=== PATIENT | female | born 1980 | race Caucasian/White ===

== ENCOUNTER 2016-11-20 13:40 | Emergency (ER) | payer OTHER ==
[2016-11-20 13:48] VITALS: BP 145/73; PULSE 70; RESP 30; O2SAT 99
--- NOTE | 2016-11-20 14:05 | ED.REPORT ---
HPI-Chest Pain Under 40 Date of Service Nov 20, 2016 ED Provider: The patient is a 36 year old otherwise female who presents to the emergency department complaining of chest pain that began suddenly after she bent over to grab her cat earlier today around 1130. The pain lasted for about 45 minutes. She states it felt like something was sitting on her chest. She also describes the pain as "sharp." Her pain was exacerbated with deep breaths. She has had similar symptoms in the past but her pain today is more severe. She is on control pills. She recently quit smoking tobacco. She denies fever, chills, shortness of breath, cough, vomiting, diarrhea, abdominal pain or lower extremity swelling. Nursing Notes Stated Complaint: CHEST PAIN/BREATHING PAINFUL Chief Complaint: Chest Pain-Non Cardiac Nature Nursing Notes Reviewed: Yes Allergies: Coded Allergies: No Known Allergies (Unverified , 11/20/16) Scheduled PRN Hydrocodone-Acetaminophen 5-325 mg (Hydrocodone-Acetaminophen 5-325 mg) 1 Each Tablet 1 TABLET PO Q6H PRN PRN For Pain General Time Seen by MD: 14:04 Chief Complaint Chest pain Hx Obtained From: Patient, Spouse Arrived By: Wheelchair Sudden in Onset?: Yes Symptom Duration: Since onset Location: : Substernal Quality: Painful, Pleuritic, Pressure, Sharp Radiation: : Does not radiate Migration/Movement: Reports: None Severity: Current: Moderate Severity: Maximum: Severe Recent Healthcare: No recent doctor visit, No recent hospitalization Similar Sx Previous: Yes Past Medical History Past Medical History Denies Family History Noncontributory Smoking History Former Smoker (recently quit) Social History Other Social History: Good social support, , Local resident Ambulatory Status Independent Review of Systems Constitutional: Denies: Chills, Fever Respiratory: Reports: Pleuritic pain, Denies: Non-productive cough, Shortness of breath Cardiovascular: Reports: Chest pain GI: Denies: Abdominal pain, Diarrhea, Vomiting Musculoskeletal: Denies: Extremity swelling Complete sys rev & neg: except as marked. Physical Exam Initial Vital Signs Vital Signs (First) Date Time Temp Pulse Resp B/P Pulse Ox O2 Delivery O2 Flow Rate FiO2 11/20/16 13:48 36.6 70 30 145/73 99 Room Air Initial VS: Reviewed, Vital signs normal Head / Eyes: Atraumatic, Normocephalic, PERRL ENT: Mucous membranes moist, Conjunctiva normal, No scleral icterus Neck: Supple, Non-tender, Full range of motion Abdomen / GI: Soft, Non-tender, No guarding, No rebound, No distention Lymphatic: No lymphadenopathy Extremities: Vascular intact, Neuro intact, No swelling, No tenderness Skin: Warm, Dry, No cyanosis Neurologic: Alert, Oriented, Nonfocal Psychiatric: Mood/affect normal, Behavior normal, Normal thought content General/Constitutional: Awake, Alert, Cooperative Respiratory / Chest: Breath sounds NL, Breath sounds = bilat, No respiratory distress, No rales, No rhonchi, No wheezing mid chest tenderness with palpation Cardiovascular: Heart rate NL, Regular rhythm, Heart sounds NL, No gallop, No murmurs, No rubs, Peripheral circulation NL, Pulses = bilaterally, No gross BP differential Lower Extremity / Pelvis / MS: No swelling, Neurologic intact, Vascular intact , No edema Calves are soft and nontender Interpretation & Diagnostics Lab Results Interpretation Result Diagram: 11/20/16 1350 11/20/16 1350 Test 11/20/16 13:50 White Blood Count 12.7th/mm3 (3.8-10.1) Red Blood Count 4.96mil/mm3 (3.90-5.20) Hemoglobin 15.4g/dL (12.0-15.6) Hematocrit 45.3% (35.0-46.0) Mean Corpuscular Volume 91fL (81-100) Mean Corpuscular Hemoglobin 31.0pg (27.0-35.0) Mean Corpuscular Hemoglobin Concent 34.0% (32.0-37.0) Red Cell Distribution Width 12.1% (12.3-15.4) Platelet Count 309bil/L (150-400) Neutrophils (%) (Auto) 57% (40-74) Lymphocytes (%) (Auto) 31% (14-46) Monocytes (%) (Auto) 9% (4-12) Eosinophils (%) (Auto) 2% (0-5) Basophils (%) (Auto) 1% (0-3) D-Dimer 0.8mg/L (<0.50) Sodium Level 137mEq/L (134-144) Potassium Level 4.3mEq/L (3.5-5.2) Chloride Level 102mEq/L (97-108) Carbon Dioxide Level 20mmol/L (18-29) Blood Urea Nitrogen 18mg/dL (6-20) Creatinine 0.70mg/dL (0.57-1.00) Estimat Glomerular Filtration Rate 137mL/min (>59) Glucose Level 95mg/dL (60-99) Calcium Level 9.2mg/dL (8.5-10.1) Total Bilirubin 0.3mg/dL (0.0-1.2) Aspartate Amino Transf (AST/SGOT) 24U/L (0-50) Alanine Aminotransferase (ALT/SGPT) 46U/L (0-32) Alkaline Phosphatase 89U/L (25-150) Troponin T < 0.010ug/L (0.0-0.011) Pro-B-Type Natriuretic Peptide 32.33pg/mL (0-130) Total Protein 7.3g/dL (6.4-8.4) Albumin 4.1g/dL (3.4-5.0) ECG Interpretation ECG Interpretation: Normal sinus rhythm Normal intervals Normal axis No ST or T wave changes Time: 14:00 Interpreted by: ED physician X-Ray Chest Interpretation Chest Xray Interpretation: IMPRESSION: Retrocardiac opacity is noted suspected to be related to overlapping vascular shadows. CT may be obtained as clinically indicated for additional evaluation. Dictated by: Yolanda Chong M.D. on 11/20/2016 at 16:11 Interpretation / Wet Read by: Interpret - Radiologist CT Chest Interpretation IMPRESSION: 1. Exam is negative for pulmonary embolic disease. 2. Mass lesion in the left lower lobe is slightly larger and more rounded in configuration compared to previous study. Internal attenuation suggests a solid lesion. The finding may represent a slow growing, well-differentiated carcinoma, but relative stability over time is more compatible with a benign process such as hamartoma. A PET/CT exam is suggested for better determination of malignant versus benign etiology. Dictated by: Andrew Yee M.D. on 11/20/2016 at 16:25 Study type: CT pulm angiogram Interpretation / Wet Read by: Interpret - Radiologist Re-Eval/Medical Decision Med Decision/Clinical Course The patient presents with sudden onset pain, had low suspicion for pulmonary embolus however she does have an elevated d-dimer risk factors such as control pills and recent smoking. The patient's symptoms seemed to improve and she is negative for PE. A partial list of additional differential diagnoses considered were acute coronary syndrome, esophageal reflux, pneumonia, and musculoskeletal pain. Source of Hx: Old records, Family Re-Evaluation/Progress : Time of Eval: 16:55 Re-Evaluation/Progress Note: Rechecked the patient. Discussed results, diagnosis, and plan for discharge. All questions were addressed. Counseled Regarding: Diagnosis, Lab results, Need for follow-up, When/why to return to ED Discharge & Departure Primary Impression: Chest wall pain Additional Impression: Mass of left lung Disposition: Home Discharge Condition All VS Reviewed: Yes Condition: Stable Additional Instructions: Thank you for entrusting us with your care today. There is no dangerous cause for your chest pain today. You do have a stable mass in your left lung that needs further evaluation. it is important that you followup with a regular doctor. You need further testing. We have given you a referral to Dr. Bellamy. Seek care for any new or concerning symptoms. Referrals: Adrian Bellamy Attestation Portions of this note were transcribed by Margie Gonsales. I, Dr. Barrios personally performed the history, physical exam and medical decision-making; I reviewed and confirmed the accuracy of the information in the transcribed note. Signed by: Remberto Camara, 11/20/2016 at 1715. Heather Barrios MD Nov 20, 2016 14:05 Margie Gonsales Nov 20, 2016 14:15
[2016-11-20 14:14] LABS: BASOPHILS % (AUTO) 1 % (0-3); EOSINOPHILS % (AUTO) 2 % (0-5); MONOCYTES % (AUTO) 9 % (4-12); Mean Corpuscular Volume 91 fL (81-100); NEUTROPHILS % (AUTO) 57 % (40-74); Platelet Count 309 bil/L (150-400)
[2016-11-20 14:25] LABS: TROPONIN T < 0.010 ug/L (0.0-0.011)
[2016-11-20 15:00] VITALS: BP 114/54; PULSE 68; RESP 20; O2SAT 99
--- NOTE | 2016-11-20 16:14 | DRSVH ---
PROCEDURE: X-RAY CHEST ONE VIEW, PORTABLE ([id number]) INDICATIONS: chest pain TECHNIQUE: One view of the chest was acquired. COMPARISON: [facility], CR, CHEST 2VW, 08/09/2014, 12:45. FINDINGS: Surgical changes and devices: None. Lungs and pleura: No pleural effusions or pneumothorax. Retrocardiac opacity is present. Mediastinum: Mediastinal contours appear normal. Heart size is normal. Bones and chest wall: No suspicious bony lesions. Overlying soft tissues appear unremarkable. IMPRESSION: Retrocardiac opacity is noted suspected to be related to overlapping vascular shadows. C T may be obtained as clinically indicated for additional evaluation. Dictated by: Yolanda Chong M.D. on 11/20/2016 at 16:11 Approved by: Yolanda Chong M.D. on 11/20/2016 at 16:12
[2016-11-20 16:15] VITALS: BP 105/65; PULSE 69; RESP 20; O2SAT 97
--- NOTE | 2016-11-20 16:36 | DRSVH ---
PROCEDURE: CT ANGIO CHEST PULMONARY EMBOLISM ([id number]) INDICATIONS: pain with inspiration TECHNIQUE: After the administration of intravenous contrast, 2 mm thick sections acquired from the pulmonary api nabil to the posterior costophrenic angles. 3-dimensional maximum intensity projection (MIP) coronal a nd sagittal reformats were then acquired through the thorax. For radiation dose reduction, the follo wing was used: automated exposure control, adjustment of mA and/or kV according to patient size. COMPARISON: Chest 11/20/2016, 08/09/2014; CT chest 11/08/2009 FINDINGS: Image quality: Excellent. Pulmonary arteries: Pulmonary arteries are normal in size, and demonstrate no intraluminal filling d efects to suggest central pulmonary embolism. Lungs and pleura: Reidentified is a mass lesion in the medial left lower lobe which measures 1.8 x 2. 0 cm in diameter with attenuation 31. On the 19/07 exam, the mass was more triangular in shape and me asured 1.6 x 1.8 cm. No pleural effusions or pneumothorax. Central and peripheral airways are patent . A 4 mm subpleural nodule in the anterior base of the right middle lobe, image 96, is unchanged. Mediastinum: Heart size is normal, without pericardial effusion. No mediastinal or hilar adenopathy . Thoracic aorta is normal in caliber and enhancement. Esophagus is normal in caliber, without hiat al hernia. Bones and chest wall: No suspicious bony lesions. Ribs and thoracic spine appear intact throughout. Thyroid gland appears normal. No axillary or supraclavicular adenopathy. Abdomen: Visualized upper abdominal solid organs appear normal in the early arterial phase of enhanc ement. IMPRESSION: 1. Exam is negative for pulmonary embolic disease. 2. Mass lesion in the left lower lobe is slightly larger and more rounded in configuration compared t o previous study. Internal attenuation suggests a solid lesion. The finding may represent a slow grow ing, well-differentiated carcinoma, but relative stability over time is more compatible with a benign process such as hamartoma. A PET/CT exam is suggested for better determination of malignant versus b enign etiology. Dictated by: Andrew Yee M.D. on 11/20/2016 at 16:25 Approved by: Andrew Yee M.D. on 11/20/2016 at 16:35
[2016-11-20] MEDS ORDERED: HYDR-4003 PO (17:14)
[2016-11-20 17:38] VITALS: BP 114/72; PULSE 70; RESP 20; O2SAT 98
[2016-11-20 17:41] VITALS: BP 114/72; PULSE 70; RESP 20; O2SAT 98
== END 2016-11-20 17:38 | disposition home or self-care (01) ==
LOC: SED 13:40
DX: R07.89 Other chest pain (principal); R91.8 Other nonspecific abnormal finding of lung field; Z87.891 Personal history of nicotine dependence
CPT/HCPCS: 36415; 71010; 71275; 80053; 83880; 84484; 85025; 85379; 93005; 99285; Q9967